=== PATIENT | female | born 1950 | race Caucasian/White ===

== ENCOUNTER → 2016-06-09 | Outpatient (CLI) | payer MEDICARE, OTHER | END | disposition home or self-care (01) | LOC: GMAM 14:40 | PROVIDERS: ATTEND Family Medicine | DX: R30.0 Dysuria (principal) ==

== ENCOUNTER → 2016-06-23 | Outpatient (CLI) | payer MEDICARE, OTHER | LOC: GMAM 17:48 | PROVIDERS: ATTEND Family Medicine | DX: M06.9 Rheumatoid arthritis, unspecified (principal); R30.0 Dysuria ==

== ENCOUNTER → 2016-09-08 | Outpatient (CLI) | payer MEDICARE, OTHER ==
--- NOTE | 2016-09-09 00:35 | US ---
Procedure: US LOWER EXTREMITY ARTERIES BILATERAL Exam Date: 09/08/2016 Ordering Provider: LEONARD KWON Clinical Indication: EDEMA Comparison: None Technique: Arterial duplex Doppler ultrasound was obtained over both lower extremities. This includes grayscale, pulsed Doppler, and color Doppler. Mentally Impaired Teacher images recorded. Findings: Right Lower Extremity: There are triphasic waveforms in the arteries of the thigh to the level of the popliteal. There are biphasic waveforms distally. No significant stenosis. Left Lower Extremity: There are triphasic waveforms in the arteries of the thigh to the level of the peroneal artery. There are biphasic waveforms in the posterior tibial and dorsalis pedis arteries. No significant stenosis. Impression: 1. No significant stenosis in the arteries of either lower extremity. Electronically signed by: Neeraj Morse MD 09/09/2016 12:34 AM CDT
== END | disposition home or self-care (01) ==
LOC: US 09:01
PROVIDERS: ATTEND Family Medicine
DX: R60.0 Localized edema (principal)

== ENCOUNTER → 2016-09-21 | Outpatient (CLI) | payer MEDICARE, OTHER | END | disposition home or self-care (01) | LOC: GMAM 14:24 | PROVIDERS: ATTEND Family Medicine | DX: N39.0 Urinary tract infection, site not specified (principal) ==

== ENCOUNTER → 2016-10-12 | Outpatient (CLI) | payer MEDICARE, OTHER | END | disposition home or self-care (01) | LOC: GMAM 15:13 | PROVIDERS: ATTEND Family Medicine | DX: N39.0 Urinary tract infection, site not specified (principal) ==

== ENCOUNTER → 2016-12-24 | Outpatient (CLI) | payer MEDICARE, OTHER | END | disposition home or self-care (01) | LOC: GMAM 10:29 | PROVIDERS: ATTEND Family Medicine | DX: D64.9 Anemia, unspecified (principal); E03.8 Other specified hypothyroidism; E55.9 Vitamin D deficiency, unspecified ==

== ENCOUNTER → 2017-01-10 | Outpatient (CLI) | payer MEDICARE, OTHER | LOC: GMA 20:46 | PROVIDERS: ATTEND Nurse Practitioner Acute Care | DX: D49.89 Neoplasm of unspecified behavior of other specified sites (principal) ==

== ENCOUNTER → 2017-02-17 | Outpatient (CLI) | payer MEDICARE, OTHER | END | disposition home or self-care (01) | LOC: GMA 16:44 | PROVIDERS: ATTEND Nurse Practitioner Family | DX: N39.0 Urinary tract infection, site not specified (principal) ==

== ENCOUNTER → 2017-03-11 | Outpatient (CLI) | payer MEDICARE, OTHER | END | disposition home or self-care (01) | LOC: BFHH 10:19 | PROVIDERS: ATTEND Family Medicine | DX: N39.0 Urinary tract infection, site not specified (principal) ==

== ENCOUNTER → 2017-03-31 | Outpatient (CLI) | payer MEDICARE, OTHER | END | disposition home or self-care (01) | LOC: GMAM 14:31 | PROVIDERS: ATTEND Family Medicine | DX: E03.8 Other specified hypothyroidism (principal) ==

== ENCOUNTER → 2017-04-11 | Outpatient (CLI) | payer MEDICARE, OTHER | END | disposition home or self-care (01) | LOC: MAMMO 11:33 | PROVIDERS: ATTEND Family Medicine | DX: Z12.31 Encounter for screening mammogram for malignant neoplasm of breast (principal); E87.6 Hypokalemia | CPT/HCPCS: 77063; 83735; G0202 ==

== ENCOUNTER → 2017-04-19 | Outpatient (CLI) | payer MEDICARE, OTHER ==
--- NOTE | 2017-04-21 15:25 | US ---
EXAM DESCRIPTION: Breast,Left: Ultrasound CLINICAL HISTORY: 66 yearsFemaleABNORMAL MAMMO COMPARISON: Digital 3-D tomosynthesis left breast on this visit. Bilateral 3-D screening mammogram 04/11/2017. TECHNIQUE: Transcutaneous scanning of the left breast utilizing two-dimensional and Doppler modes. Scanning performed by the fibre cement moulder and Dr. Blanton. FINDINGS: Ultrasound scanning 1200 clock position 2 cm from the nipple. Mostly diffuse fibroglandular tissues are noted. Minimal fatty tissues which are heterogeneous. No discrete solid mass or cyst. No skin changes or parenchymal edema. No large calcifications. IMPRESSION: 1. Bi-Rads Category 2: Benign. 2. Please refer to 3-D tomosynthesis left breast diagnostic mammographic study and report on this visit. The FINDINGS and the follow-up plan were reviewed in person with the patient after the examination. Written communication explaining the IMPRESSION and follow-up will be mailed to the patient and referring care provider. Electronically signed by: Elton Blanton MD 04/21/2017 3:24 PM [facility]
--- NOTE | 2017-04-21 15:26 | MAM ---
EXAM DESCRIPTION: 3D Diagnostic, Left: Digital Mammography CLINICAL HISTORY: 66 yearsFemaleABNORMAL MAMMO . Focal asymmetry left retroareolar breast. COMPARISON: 3-D tomosynthesis bilateral screening mammogram 04/11/2017. Targeted left breast ultrasound following this examination.. No prior reports available. Reports from prior examinations also reviewed. Report from prior examination also reviewed. TECHNIQUE: Left breast LM projection full-field images, 3-D tomosynthesis digital mammographic technique. Also bilateral synthesized LM full-field images. CAD not utilized. FINDINGS: The breast parenchymal density pattern is: Scattered areas of fibroglandular density. No skin thickening or nipple retraction focal asymmetry not well seen on the LM full-field 3-D tomography and symphysis images. ULTRASOUND: Ultrasound scanning 1200 clock position 2 cm from the nipple. Mostly diffuse fibroglandular tissues are noted. Minimal fatty tissues which are heterogeneous. No discrete solid mass or cyst. No skin changes or parenchymal edema. No large calcifications. IMPRESSION: BI-RADS CATEGORY: 2 - BENIGN FINDINGS. FOLLOW UP: Return to routine digital bilateral screening, one year interval from April 2017. The FINDINGS and the follow-up plan were reviewed in person with the patient after the examination. Written communication explaining the IMPRESSION and follow-up will be mailed to the patient and referring care provider. According to the [employer], yearly mammograms are recommended starting at age 40 and continuing as long as a woman is in good health. Any breast change noted on a breast self-exam should be reported promptly to the patient's healthcare provider. Breast MRI is recommended for women with an approximately 20-25% or greater lifetime risk of breast cancer, including women with a strong family history of breast or ovarian cancer and women who have been treated for Hodgkin's disease. A negative mammographic report should not delay tissue diagnosis in patients with significant clinical history or physical findings. Extremely dense breast tissue limits the sensitivity of digital mammography. Electronically signed by: Elton Blanton MD 04/21/2017 3:25 PM [facility]
== END | disposition home or self-care (01) ==
LOC: MAMMO 11:03
PROVIDERS: ATTEND Family Medicine
DX: R92.8 Other abnormal and inconclusive findings on diagnostic imaging of breast (principal)
CPT/HCPCS: 76641; G0206; G0279

== ENCOUNTER → 2017-06-24 | Outpatient (CLI) | payer MEDICARE, OTHER | LOC: BFHH 16:44 | PROVIDERS: ATTEND Family Medicine | DX: R30.0 Dysuria (principal); R35.0 Frequency of micturition ==

== ENCOUNTER → 2017-07-12 | Outpatient (CLI) | payer MEDICARE, OTHER | LOC: GMAM 11:39 | PROVIDERS: ATTEND Family Medicine | DX: E03.8 Other specified hypothyroidism (principal) ==

== ENCOUNTER → 2017-08-17 | Outpatient (CLI) | payer MEDICARE, OTHER ==
--- NOTE | 2017-08-17 14:46 | MRI ---
EXAM DESCRIPTION: Lumbar Spine w/o Contrast CLINICAL HISTORY: LEG PAIN, RHEUMATOID ARTHRITIS COMPARISON: None Available. TECHNIQUE: MRI of the lumbar spine is performed according to our usual protocol with axial and sagittal multi sequence imaging. FINDINGS: Sagittal T2 images reveal decreased signal intensity consistent with desiccation of the intervertebral discs at all lumbar levels. Posterior annular bulges are not a prominent finding. No prevertebral mass or aneurysm. Lower cord and conus appear normal. Tip of the conus is behind lower L1. Hemangiomas in vertebral bodies L1 and L2. Sagittal T1 images reveal benign marrow signal characteristics. Normal T1 signal intensity and appearance of the lower cord and conus. Sagittal STIR images are negative for marrow edema within the vertebral bodies or posterior elements. No paraspinous fluid collection or cystic lesion. Axial T1 and T2-weighted images were obtained to evaluate the disc levels. L1-2: No posterior annular bulge or herniation. No spinal stenosis or neural foraminal narrowing. Mild facet hypertrophic changes. Normal tip of the conus and upper cauda equina. L2-3: No posterior annular bulge or focal disc herniation. No spinal stenosis or neural foraminal narrowing. Facets appear normal with mild ligamentum flavum thickening. L3-4: Minimal posterior annular bulge without focal disc herniation. No spinal stenosis or neural foraminal narrowing. Hypertrophied facets and thickened ligamentum flavum are noted, left more than right. No significant subarticular recess narrowing. L4-5: Mild posterior annular bulge without focal disc herniation. No spinal stenosis or neural foraminal narrowing. There is moderate facet and ligamentum flavum hypertrophy without significant subarticular recess narrowing. L5-S1: Minimal posterior annular bulge with no focal disc herniation. No spinal stenosis or neural foraminal narrowing. Moderate facet and ligamentum flavum hypertrophy. Upper sacrum appears intact. Fatty atrophy of the paraspinous muscles is noted. No aortic aneurysm or retroperitoneal adenopathy. IMPRESSION: Negative for spinal stenosis or acute disc herniation. Electronically signed by: Hairsh Thomas MD 08/17/2017 2:44 PM CDT
== END ==
LOC: MRI 09:09
PROVIDERS: ATTEND Family Medicine
DX: M06.9 Rheumatoid arthritis, unspecified (principal); M79.652 Pain in left thigh; M79.651 Pain in right thigh

== ENCOUNTER → 2017-08-25 | Outpatient (CLI) | payer MEDICARE, OTHER | LOC: GMAM 10:38 | PROVIDERS: ATTEND Family Medicine | DX: E04.8 Other specified nontoxic goiter (principal); M06.9 Rheumatoid arthritis, unspecified; I10 Essential (primary) hypertension; E11.9 Type 2 diabetes mellitus without complications ==

== ENCOUNTER → 2017-10-07 | Outpatient (CLI) | payer MEDICARE, OTHER | LOC: GMAM 10:34 | PROVIDERS: ATTEND Family Medicine | DX: N39.0 Urinary tract infection, site not specified (principal); M06.9 Rheumatoid arthritis, unspecified ==

== ENCOUNTER → 2017-11-07 | Outpatient (CLI) | payer MEDICARE, OTHER | LOC: GMAM 15:14 | PROVIDERS: ATTEND Family Medicine | DX: M06.9 Rheumatoid arthritis, unspecified (principal); N39.0 Urinary tract infection, site not specified ==

== ENCOUNTER 2018-01-27 13:49 | Inpatient (IN) | payer MEDICARE, OTHER ==
[2018-01-27] MEDS ORDERED: SODIUM CHLORIDE 0.9% (FLUSH) 10 ML SYG IV PRN (15:02)
[2018-01-27] MEDS ORDERED: ACETAMINOPHEN 325 MG TAB PO PRN (15:02)
[2018-01-27 15:28] VITALS: O2SAT 95
[2018-01-27] MEDS ORDERED: IV SET AND CAP CHANGE INJ INJ SCH (15:30)
[2018-01-27] MEDS ORDERED: GLUCAGON INJ 1 MG VIAL SUBCU PRN (15:53)
[2018-01-27] MEDS ORDERED: DEXTROSE 50% 25 GM/50 ML SYG IV PRN (15:53)
[2018-01-27] MEDS ORDERED: PIPERACILLIN/TAZOBACTAM 3.375 GM in SODIUM CHLORIDE 0.9% 100ML 100 ML IVPB ONE (16:00)
[2018-01-27] MEDS ORDERED: INSULIN LISPRO 100 UNITS/ML PEN SUBCU SCH (16:30)
[2018-01-27 17:00] VITALS: TEMP 98.4
[2018-01-27] MEDS ORDERED: PIPERACILLIN/TAZOBACTAM 3.375 GM VIAL IVPB ONE (17:07)
[2018-01-27] MEDS ORDERED: SODIUM CHLORIDE 0.9% 100ML 100 ML IVPB ONE (17:08)
[2018-01-27] MEDS ORDERED: KCL 20MEQ/0.45% NS 1,000 ML IVS PRN (17:57)
[2018-01-27] MEDS ORDERED: predniSONE 5 MG TAB PO SCH (18:00)
[2018-01-27] MEDS ORDERED: metFORMIN HCL 500 MG TAB PO SCH (18:42)
[2018-01-27] MEDS ORDERED: NON-FORMULARY MEDICATION 1 EA MIS (Furosemide [Lasix] 20 MG) PO PRN (18:42)
[2018-01-27] MEDS ORDERED: HYDROcodone 10MG/APAP 325MG 1 EA TAB PO SCH (18:42)
[2018-01-27] MEDS ORDERED: NON-FORMULARY MEDICATION 1 EA MIS (Magnesium [Magnesium] 400 MG) PO SCH (18:42)
[2018-01-27] MEDS ORDERED: POTASSIUM CHLORIDE 16 MEQ PO SCH (18:42)
[2018-01-27] MEDS ORDERED: NON-FORMULARY MEDICATION 1 EA MIS (Losartan Potassium & Hydrochlo [Losartan Potassium/Hydr PO SCH (18:42)
[2018-01-27] MEDS ORDERED: PIPERACILLIN/TAZOBACTAM 3.375 GM in SODIUM CHLORIDE 0.9% 100ML 100 ML IVPB SCH (20:00)
[2018-01-27] MEDS ORDERED: NON-FORMULARY MEDICATION 1 EA MIS (Cholecalciferol [Vitamin D3] 1,000 UNIT) PO SCH (22:30)
[2018-01-27] MEDS ORDERED: MULTIPLE MINERALS PO SCH (22:30)
[2018-01-27] MEDS ORDERED: VITAMINS PO SCH (22:30)
[2018-01-28] MEDS ORDERED: FENOFIBRATE 48 MG PO SCH (06:00)
[2018-01-28] MEDS ORDERED: NON-FORMULARY MEDICATION 1 EA MIS PO SCH (06:00)
[2018-01-28] MEDS ORDERED: LEUCOVORIN CALCIUM 5 MG PO SCH (12:00)
[2018-01-28] MEDS ORDERED: NON-FORMULARY MEDICATION 1 EA MIS (Leflunomide [Leflunomide] 10 MG) PO SCH (12:00)
--- NOTE | 2018-01-28 12:14 | SSS ---
SUPERVISING PHYSICIAN: Ivan Valentin M.D. CHIEF COMPLAINT: Urinary tract infection. HISTORY OF PRESENT ILLNESS: Ms. Beth is a 67 year-old female patient that is taken care by Dr. Acevedo. She has a history of multiple urinary tract infections with fairly resistant organisms in the past. In the last month or so she has had a couple of urinary tract infections where cultures come back Klebsiella pneumoniae showing again very resistant pattern being sensitive to only Amoxicillin, Cipro, Levaquin, Zosyn and Nitrofurantoin. The patient has been on Augmentin, however she is allergic to Cipro and Levofloxacin. She in the last week has been started once again on Augmentin but yet has any improvement and continues to show growth on cultures. Dr. Acevedo requested the patient be admitted to the hospital for initiation of antibiotic therapy with Zosyn given the fact that she has failed to respond to any treatment with any oral antibiotics. The patient was directly admitted in stable condition for further evaluation and treatment. PAST MEDICAL HISTORY: 1. Chronic urinary tract infection with multidrug resistant organisms. 2. Hyperlipidemia. 3. Hypertension. 4. Osteoarthritis. 5. Bilateral cataracts. 6. Rheumatoid arthritis. PAST SURGICAL HISTORY: 1. Tonsillectomy. 2. Bilateral tubal ligation. HOME MEDICATIONS: Awaiting updated list and verifications of medications at time of admission. ALLERGIES: CIPRO, MACRODANTIN, IVP DYE AND TRICOR. FAMILY HISTORY: Father at unknown age due to leukemia. Mother is currently living and healthy. She has 1 brother who is healthy. She has a sister as well as 2 sons who are healthy. She has 2 daughters who are both , one from prescription problems, the other one from homicide. SOCIAL HISTORY: The patient lives in [place]. She is . She is a current smoker, approximately a pack a day. She denies any alcohol or illicit drug use. REVIEW OF SYSTEMS: CONSTITUTIONAL: Denies any fevers, chills, body aches, weight gains, weight changes. HEENT: Denies any headaches, ear aches, nasal congestion, sore throat, coughing. RESPIRATORY: Denies any coughing, wheezing or shortness of breath. CARDIOVASCULAR: Denies any chest pains, dyspnea or syncopal episodes. GASTROINTESTINAL: Denies any nausea, vomiting, diarrhea other than diarrhea associated with Metformin. She has no abdominal pains. GENITOURINARY: Denies any significant dysuria, hematuria, polyuria despite chronic urinary tract infections. NEUROLOGIC: She denies any headaches, syncopal episodes, ataxia, seizures or other neurosensory deficits. PHYSICAL EXAMINATION: VITAL SIGNS: Temperature 98.4, pulse 78, respirations 18, satting 90% on room air. Blood pressure was not obtained at time of admission. Weight 88.5 kg. GENERAL: The patient is quite anxious and is very demanding. She is upset that she has not yet received her medication since she has been in the hospital that she has had at specific times, but she appears to be in no acute distress. HEENT: Tympanic membranes are clear bilaterally. Oropharynx was pink and moist without any lesions. NECK: Supple, non-tender with full range of motion. No jugular venous distention. CHEST: Clear to auscultation without any rhonchi, wheezing or rales. CARDIOVASCULAR: Regular rate and rhythm without appreciable murmurs, gallops, or rubs. ABDOMEN: Soft, non-tender. Positive bowel sounds. GENITOURINARY: Deferred. EXTREMITIES: No clubbing, cyanosis or edema. NEUROLOGIC: She is alert and oriented times three. Facial features were symmetrical. Extraocular movements are within normal limits. There was no notable nystagmus. Cranial nerves II-XII are grossly intact. LABORATORY: CBC showed a white count of 6,900, hemoglobin 13.3, hematocrit 39.6 , platelet count 208,000. Differential showed to be without a left shift. Chemistries showed potassium 3.5, otherwise electrolytes were normal. BUN 19, creatinine 0.61, glucose 79. Blood sugars 97. Liver functions were all within normal limits. Urinalysis again showed positive nitrites. Microscopic revealed 3+ bacteria but no white cells. No WBCs and 1 to 3 epithelials. MICROBIOLOGY: Blood cultures were obtained. She had a culture pending from the previous day in the clinic which showed greater than 100,000 gram negative bacilli. RADIOLOGY: No radiographic studies were obtained. ASSESSMENT: 1. Chronic urinary tract infection failing to respond to outpatient management requiring initiation of IV antibiotics due to multidrug resistant organisms. 2. History of hypertension. 3. Osteoarthritis. 4. Rheumatoid arthritis. HOSPITAL COURSE: The patient was admitted directly from Dr. Acevedo's office late in the afternoon for initiation of Zosyn. She was admitted in stable condition. Vital signs were obtained. IVs were started. She received an initial dose of Zosyn. She demanded that her medications be administered at a specific time. I explained to her that they would have to be inventoried as they were her home medications and once they could be assessed and reevaluated and updated in the computer so that they could be restarted, they would be administered. She voiced that this would be okay but shortly after told the nurses that she was not going to stand for not getting her medications and was going to leave because her medications were over 30 minutes late. Once again it was explained to the patient the situation that the medications were not ready to be administered because they were not in hand and we could not administer medications that were not verified. The patient understood this but was not willing to accept this and was told that if she wished to be discharge she could do so against medical advice. After further counseling of the patient , the patient opted to leave against medical advice. Her IVs were removed. Her home medications actually were administered before she left. Her medications she had brought to us were re-inventoried and verified, and returned to the patient. She was told should she have any concerning symptoms to certainly return to the [facility] for further evaluation and to followup with Dr. Acevedo next week. The patient was stable at time of discharge. PLAN: The patient is leaving against medical advice as noted above. She was instructed to return to the hospital should she have any concerning symptoms. She was told to resume her home medications that she had prior to administration to the hospital and to followup with Dr. Acevedo in the following week. She was also notified that Dr. Acevedo would be notified of the current situation of the patient leaving against medical advice. Diet at discharge was diabetic diet as tolerated. Activities were to increase as tolerated. No new medications were prescribed at discharge and she was in stable condition at discharge, and was discharged to the care of her . #[id number] [facility]
[2018-01-28] MEDS ORDERED: METHOTREXATE SODIUM PO SCH (18:42)
== END 2018-01-27 19:30 | disposition left against medical advice (07) | DRG 690 ==
LOC: MS 13:49
PROVIDERS: ADMIT Nurse Practitioner Family; ATTEND Nurse Practitioner Family
DX: N39.0 Urinary tract infection, site not specified (principal); Z87.440 Personal history of urinary (tract) infections; E78.5 Hyperlipidemia, unspecified; I10 Essential (primary) hypertension; M19.90 Unspecified osteoarthritis, unspecified site; H26.9 Unspecified cataract; M06.9 Rheumatoid arthritis, unspecified; F17.210 Nicotine dependence, cigarettes, uncomplicated; F41.9 Anxiety disorder, unspecified

== ENCOUNTER → 2018-05-10 | Outpatient (CLI) | payer MEDICARE, MEDICAID ==
--- NOTE | 2018-05-10 14:45 | US ---
EXAM DESCRIPTION: Renal CLINICAL HISTORY: 67 years Female, CHRONIC CYSTITIS COMPARISON: Previous CT abdomen and pelvis without contrast May 07, 2015 TECHNIQUE: Retroperitoneal sonogram was performed to evaluate the kidneys and bladder. FINDINGS: Right kidney Right renal length is 10.7 cm. Renal cortical thickness and echogenicity are normal. No right renal mass, cyst or shadowing stone. No hydronephrosis. Liver is hyperechoic consistent with diffuse hepatic steatosis. Left kidney Left renal length is 10.9 cm. Renal cortical thickness and echogenicity are normal. No left renal mass, cyst or shadowing stone. No hydronephrosis. Urinary bladder Bladder wall thickness is normal for degree of distention. Bladder is only partly filled. IMPRESSION: Normal sonographic appearance of the kidneys. Unremarkable appearance of the urinary bladder. Electronically signed by: Harish Thomas MD 05/10/2018 2:43 PM [facility]
== END ==
LOC: LAB.NP 13:53
PROVIDERS: ATTEND Urology
DX: N30.20 Other chronic cystitis without hematuria (principal); R31.0 Gross hematuria

== ENCOUNTER → 2018-07-18 | Outpatient (CLI) | payer MEDICARE, MEDICAID | LOC: GMAM 15:30 | PROVIDERS: ATTEND Family Medicine | DX: E03.8 Other specified hypothyroidism (principal) ==

== ENCOUNTER → 2018-08-10 | Outpatient (CLI) | payer MEDICARE, MEDICAID ==
--- NOTE | 2018-08-10 17:21 | US ---
EXAM DESCRIPTION: Venous,Lower Extremity LT (accession [id number]), Venous,Lower Extremity RT (accession [id number]): Ultrasound. CLINICAL HISTORY: PVD. Bilateral lower extremity pain and swelling. COMPARISON: None Available. TECHNIQUE: Two -dimensional and doppler sonographic evaluation of the deep venous system of the bilateral lower extremities. FINDINGS: Doppler evaluation shows normal color flow and normal phasicity and augmentation of the bilateral common femoral veins, femoral veins, popliteal veins, greater saphenous vein, and peroneal veins, and bilateral Posterior tibial veins. These veins showed normal occlusion with transducer pressure. Two-dimensional survey showed no echogenic clot within these veins. IMPRESSION: Duplex ultrasound evaluation of the bilateral lower extremity deep venous systems showing no evidence of thrombosis. Electronically signed by: Elton Blanton MD 08/10/2018 5:18 PM CDT
--- NOTE | 2018-08-10 17:21 | US ---
EXAM DESCRIPTION: Venous,Lower Extremity LT (accession [id number]), Venous,Lower Extremity RT (accession [id number]): Ultrasound. CLINICAL HISTORY: PVD. Bilateral lower extremity pain and swelling. COMPARISON: None Available. TECHNIQUE: Two -dimensional and doppler sonographic evaluation of the deep venous system of the bilateral lower extremities. FINDINGS: Doppler evaluation shows normal color flow and normal phasicity and augmentation of the bilateral common femoral veins, femoral veins, popliteal veins, greater saphenous vein, and peroneal veins, and bilateral Posterior tibial veins. These veins showed normal occlusion with transducer pressure. Two-dimensional survey showed no echogenic clot within these veins. IMPRESSION: Duplex ultrasound evaluation of the bilateral lower extremity deep venous systems showing no evidence of thrombosis. Electronically signed by: Elton Blanton MD 08/10/2018 5:18 PM CDT
--- NOTE | 2018-08-10 17:26 | US ---
EXAM DESCRIPTION: Extremity,Lower Werner Arteries: Ultrasound. CLINICAL HISTORY: PVD COMPARISON: None. TECHNIQUE: Doppler evaluation of the bilateral lower extremity arterial flow waveforms and velocities. FINDINGS: Arterial waveforms in the right lower extremity are biphasic or triphasic throughout the right lower extremity. Minimal velocity and smaller waveforms in the right DPA.. Arterial waveforms in the left lower extremity are triphasic or biphasic from the left common femoral artery through the left SENIOR LINUX SYSTEMS ENGINEER. Decreased velocity and monophasic waveform in the left peroneal artery. Significantly decreased velocity and monophasic waveform left DPA.. Comments: tab IMPRESSION: The study indicates mild degree of atherosclerotic occlusive disease in the right anterior tibial artery. Mild to moderate atherosclerotic occlusive disease in the left peroneal artery and the left anterior tibial artery. Electronically signed by: Elton Blanton MD 08/10/2018 5:23 PM CDT
--- NOTE | 2018-08-15 12:45 | MAM ---
EXAM DESCRIPTION: 3D Screening BILATERAL : Digital Mammography. CLINICAL HISTORY: 67 years Female ANNUAL SCREENING . No complaints. No personal or family history of breast cancer. Childbirth. Postmenopausal. No HRT. Lifetime risk of developing breast cancer (Tyrer-Cuzick model)(%): 5%. COMPARISON: Bilateral screening digital breast tomosynthesis 04/11/2017. Diagnostic left breast tomosynthesis 04/19/2017. TECHNIQUE: Bilateral CC and MLO projection full-field images, digital tomosynthesis mammographic technique. Bilateral digital 2-D full-field MLO images. CAD not available for tomosynthesis or 2-D images. FINDINGS: The breast parenchymal density pattern is: Scattered areas of fibroglandular density. No skin thickening or nipple retraction. Bilateral scattered solitary calcifications. Left axillary lymph nodes.. No new focal, stellate mass or density, focal asymmetry , and no suspicious microcalcifications or laterally. Stable mammograms compared to prior study. IMPRESSION: Benign exam. BIRAD CATEGORY: 2 BENIGN FINDINGS. RECOMMENDATIONS: FOLLOW UP: Routine digital bilateral mammographic screening, one year interval from July 2018. Written communication explaining the IMPRESSION and follow-up, will be mailed to the patient and referring health care provider. According to the [employer], yearly mammograms are recommended starting at age 40 and continuing as long as a woman is in good health. Any breast change noted on a breast self-exam should be reported promptly to the patient's healthcare provider. Breast MRI is recommended for women with an approximately 20-25% or greater lifetime risk of breast cancer, including women with a strong family history of breast or ovarian cancer and women who have been treated for Hodgkin's disease. A negative mammographic report should not delay tissue diagnosis in patients with significant clinical history or physical findings. Extremely dense breast tissue limits the sensitivity of digital mammography. Electronically signed by: Elton Blanton MD 08/15/2018 12:42 PM CDT
== END ==
LOC: US 10:00
PROVIDERS: ATTEND Family Medicine
DX: Z12.31 Encounter for screening mammogram for malignant neoplasm of breast (principal); E11.9 Type 2 diabetes mellitus without complications; I70.293 Other atherosclerosis of native arteries of extremities, bilateral legs; E11.59 Type 2 diabetes mellitus with other circulatory complications; G60.3 Idiopathic progressive neuropathy

== ENCOUNTER → 2018-09-05 | Outpatient (CLI) | payer MEDICARE, MEDICAID, OTHER ==
--- NOTE | 2018-09-06 08:56 | CT ---
Procedure: CT LUNG SCREENING Exam Date: 463 05/30/2018. Ordering Provider: Ramsey Munoz Clinical Indication: PERSONAL HISTORY OF TOBACCO USE 50-75 pack years. Still smoking. This patient meets eligibility criteria for low-dose CT lung cancer screening. Comparison: None. Technique: Using a multislice scanner, sequential helical axial imaging was obtained in the thorax, 2.5 mm thickness, 2.5 mm separation, from the level of the thoracic inlet through the lung bases without IV contrast. A low dose protocol was utilized for BMI less than 30: BMI: 27.8. CTDI: 1.76 mGy. 120. kVp. 45 mA. DLP 67.8 mGy centimeters. 2D sagittal and coronal reconstructed images, 6.0 mm thickness, were obtained. This exam was performed according to our departmental dose optimization program which includes use of automated exposure control, adjustment of the mA and/or kV according to patient size and/or use of iterative reconstruction technique. Nodule measurements under 10 mm are given as mean value of 3 axes diameters. FINDINGS: Lungs and large airways: Scattered centrilobular type blebs in the lung parenchyma more prevalent in the upper lung guerrero. Pleural parenchymal scarring in the anterior lingula. 4 mm subpleural solid nodule versus pleural focal thickening abutting the lateral left lower lobe on axial image 2/93. 3 mm calcified nodule abutting the pleura posterior left lower lobe on axial image 2/81. Focal thickening of the left major fissure on axial image 2/66. No other nodules are seen in the lungs. No masses and no focal infiltrates. Pleura and space: Bilateral apical pleural thickening more on the right. Scattered bilateral focal thickening Mediastinum and lynette: evaluation limited by low dose technique and lack of IV contrast. No enlarged nodes. Heart and great vessels: Calcification of proximal brachiocephalic vessels, aortic arch and descending thoracic aorta, and coronary arteries. Chest wall, lower neck, axillae: Evaluation also limited by same factors as described above. Normal size axillary lymph nodes. Small thyroid gland. Upper abdomen: Included peritoneal cavity is negative. Normal size and density of the spleen and adrenal glands. Abdominal aortic calcifications. Osseous structures: Evaluation limited by low dose MIP technique. Upper thoracic dextroscoliosis. Minimal arthrosis right glenohumeral joint. No lytic or blastic lesions. IMPRESSION: Mild centrilobular type emphysema involving the upper lobes. Solid subpleural 4 mm nodule left lower lobe versus focal pleural thickening. Calcified granuloma left lower lobe.. [facility] Best Practice recommendations: Please see below for Lung RADS category and FOLLOW-UP.* *Lung RADS category CATEGORY 3 - Probably benign (1-2% malignancy probability), short term follow-up suggested. NODULES: Solid nodule(s) 6mm to less than 8mm at baseline, or new 4mm to under 6mm solid nodule. Part solid nodule total diameter 6mm to less than 8mm with solid component less than 6mm, or new less than 6mm total diameter nodule] [ground glass nodule(s) 20mm or greater. FOLLOW-UP: Please return for a Low Dose Chest CT in 6 months for re-evaluation. Electronically signed by: Elton Blanton MD 09/06/2018 8:54 AM CDT
== END ==
LOC: CT 10:00
PROVIDERS: ATTEND Family Medicine
DX: Z87.891 Personal history of nicotine dependence (principal); J43.9 Emphysema, unspecified

== ENCOUNTER → 2018-11-10 | Outpatient (CLI) | payer MEDICARE, MEDICAID | LOC: GMAM 10:32 | PROVIDERS: ATTEND Family Medicine | DX: E03.8 Other specified hypothyroidism (principal); E11.9 Type 2 diabetes mellitus without complications; I10 Essential (primary) hypertension ==

== ENCOUNTER → 2019-03-05 | Outpatient (CLI) | payer MEDICARE, MEDICAID, OTHER ==
--- NOTE | 2019-03-05 14:41 | CT ---
Procedure: CT LUNG SCREENING Exam Date: 03/05/2019. Ordering Provider: Ramsey Munoz Clinical Indication: PERSONAL HISTORY OF TOBACCO USE . Current cigarette smoker. 30 pack years. This patient meets eligibility criteria for low-dose CT lung cancer screening. Lung rads category 3 on prior screening study. Comparison: Low-dose CT lung cancer screening chest 05 Sep 2018. Technique: Using a multislice scanner, sequential helical axial imaging was obtained in the thorax, 2.5 mm thickness, 2.5 mm separation, from the level of the thoracic inlet through the lung bases without IV contrast. A low dose protocol was utilized for BMI less than 30: BMI: 26.3. CTDI: 1.76 mGy. 120. kVp. 45 mA. DLP 67.4 mGy-centimeters. 2D sagittal and coronal reconstructed images, 6.0 mm thickness, were obtained. This exam was performed according to our departmental dose optimization program which includes use of automated exposure control, adjustment of the mA and/or kV according to patient size and/or use of iterative reconstruction technique. Nodule measurements under 10 mm are given as mean value of 3 axes diameters. FINDINGS: Lungs and large airways: Prominent blebs in a centrilobular distribution bilaterally symmetric in the upper lung guerrero more prominent than mid- and the lower lung guerrero. Subpleural nodule versus pleural thickening on image 2/95, lateral left lower lobe 3.5 mm slightly smaller than the prior study. Stable calcified nodule subpleural left lower lobe abutting the medial pleura at the paravertebral on image 2/85 is stable. Decreasing size merry fissural nodule, left major fissure on image 2/70. 3 mm subpleural density lateral base of the right upper lobe is stable on image 2/83.. Pleura and space: Bilateral focal pleural thickening. Bilateral apical pleural thickening more on the right. Stable pleural parenchymal thickening. No complications... Mediastinum and lynette: evaluation limited by low dose technique and lack of IV contrast. Stable small nodes but no dominant soft tissue mass Heart and great vessels: Atherosclerotic calcification proximal LAD with similar calcifications in the brachiocephalic vessels aortic arch and descending thoracic aorta. Chest wall, lower neck, axillae: Evaluation also limited by same factors as described above. Stable axillary lymph nodes bilaterally. Small thyroid gland. Upper abdomen: Evaluation limited by low-dose technique. No free air or free fluid in the included peritoneal space. Included organs are unremarkable. Osseous structures: Evaluation limited by low dose MIP technique. Minimal thoracic spondylosis and scoliosis. Sternomanubrial arthrosis. No lytic or blastic lesions. IMPRESSION: Stable emphysematous changes in the upper lung guerrero more than lower lung guerrero. Stable subpleural nodule versus pleural focal thickening left lower lobe. Small scar or nodule right upper lobe stable since the prior study.. [facility] Best Practice Recommendations: please see below for Lung RADS category and FOLLOW-UP.* *Lung RADS category CATEGORY 2- Nodules with a very low likelihood (less than 1%) of becoming a clinically active cancer due to size or lack of growth. Nodules: Perifissural nodule(s) < 10 mm. (526mm3). Solid or part solid nodule(s) less than 6mm (113.1 mm3), new solid nodule less than 4mm (33.5 mm3). Ground glass nodule(s) less than 30mm (46766.2 mm3) or unchanged or slow growing ground glass nodule 30mm or greater. Cat 3 or 4 nodule unchanged for 3 or more months. FOLLOW-UP: Continue annual screening with a Low Dose Chest CT in 12 months for re-evaluation. Electronically signed by: Elton Blanton MD 03/05/2019 2:39 PM CLINIC OFFICE MANAGER
== END ==
LOC: CT 10:00
PROVIDERS: ATTEND Family Medicine
DX: Z87.891 Personal history of nicotine dependence (principal); R91.1 Solitary pulmonary nodule; J43.9 Emphysema, unspecified

== ENCOUNTER → 2019-04-09 | Outpatient (CLI) | payer MEDICARE, MEDICAID, OTHER | LOC: GMAM 14:29 | PROVIDERS: ATTEND Family Medicine | DX: M05.79 Rheumatoid arthritis with rheumatoid factor of multiple sites without organ or systems involvement (principal); E11.9 Type 2 diabetes mellitus without complications ==

== ENCOUNTER → 2019-07-27 | Outpatient (CLI) | payer MEDICARE, MEDICAID | LOC: GMAM 10:16 | PROVIDERS: ATTEND Family Medicine | DX: R53.83 Other fatigue (principal); M06.9 Rheumatoid arthritis, unspecified; E55.9 Vitamin D deficiency, unspecified ==

== ENCOUNTER → 2019-12-17 | Outpatient (CLI) | payer MEDICARE, MEDICAID | LOC: GMAM 15:08 | PROVIDERS: ATTEND Family Medicine | DX: E03.8 Other specified hypothyroidism (principal); I10 Essential (primary) hypertension; M06.9 Rheumatoid arthritis, unspecified; E11.21 Type 2 diabetes mellitus with diabetic nephropathy; E78.2 Mixed hyperlipidemia; E55.9 Vitamin D deficiency, unspecified ==

== ENCOUNTER → 2020-02-12 | Outpatient (CLI) | payer MEDICARE, MEDICAID | LOC: GMAM 17:59 | PROVIDERS: ATTEND Family Medicine | DX: E53.8 Deficiency of other specified B group vitamins (principal) ==

== ENCOUNTER → 2020-04-14 | Outpatient (CLI) | payer MEDICARE, MEDICAID, OTHER ==
--- NOTE | 2020-04-15 12:30 | CT ---
Procedure: CT LUNG SCREENING Exam Date: April 14, 2020. Ordering Provider: Ramsey Munoz Clinical Indication: PERSONAL HX OF TOBACCO . Current cigarette smoker. 50-55 pack-year history. This patient meets eligibility criteria for low-dose CT lung cancer screening. Comparison: Low-dose CT lung cancer screening examination March 2019. Technique: Using a multislice scanner, sequential helical axial imaging was obtained in the thorax, 2.5 mm thickness, 2.5 mm separation, from the level of the thoracic inlet through the lung bases without IV contrast. A low dose protocol was utilized for BMI less than 30: BMI: 29. CTDI: 1.76 mGy. 120. kVp. 45 mA. DLP 67 mGy-cm. 2D sagittal and coronal reconstructed images, 6.0 mm thickness, were obtained. This exam was performed according to our departmental dose optimization program which includes use of automated exposure control, adjustment of the mA and/or kV according to patient size and/or use of iterative reconstruction technique. Nodule measurements under 10 mm are given as mean value of 3 axes diameters. FINDINGS: Lungs and large airways: Bilateral parenchymal blebs in a centrilobular distribution and more prevalent in the upper lung guerrero stable. Small branching density with no nodular appearance on the current study in the subpleural lateral base of the right lower lobe on axial series 2, image 69, 6 mm longest dimension bilateral lower lobe pleural parenchymal scars. 4.4 mm focal pleural thickening, associated with broad pleural thickening, versus subpleural nodule medial superior segment right lower lobe, new since the prior study, image 2/65. Stable focal pleural thickening or subpleural nodule approximately 3 mm in diameter lateral left lower lobe on image 92. Stable medial subpleural calcified nodule left lower lobe on image 85. Pleura and space: Moderate broad and focal pleural thickening. Bilateral apical pleural thickening more on right than left. No acute process. Stable from the prior study. Mediastinum and lynette: evaluation limited by low dose technique and lack of IV contrast. Small lymph nodes. No dominant soft tissue mass. No interval change. Heart and great vessels: Coronary artery calcifications. Atherosclerotic calcifications in the brachial cephalic vessels and aorta. Minimal ectasia in the aortic arch. Stable since the prior study. Chest wall, lower neck, axillae: Evaluation also limited by same factors as described above. Lipoma in the anterior aspect of the anterior deltoid muscle. Upper abdomen: Evaluation limited by low-dose technique. No free air or free fluid in the included peritoneal space. Normal size and density of the adrenal glands and spleen. Osseous structures: Evaluation limited by low dose MIP technique. Thoracic kyphosis and dextroscoliosis. Narrowing of some of the foramina. Arthrosis glenohumeral joints and sternoclavicular joints. No lytic or blastic lesions. IMPRESSION: Emphysematous changes are centrilobular and predominantly in the upper lungs and stable. New 4.4 mm subpleural nodule versus focal pleural thickening medial right lower lobe. Otherwise stable appearance of the lungs.. [facility] Best Practice Recommendations: please see below for Lung RADS category and FOLLOW-UP.* *Lung RADS category CATEGORY 2- Nodules with a very low likelihood (less than 1%) of becoming a clinically active cancer due to size or lack of growth. Nodules: Perifissural nodule(s) < 10 mm. (526mm3). Solid or part solid nodule(s) less than 6mm (113.1 mm3), new solid nodule less than 4mm (33.5 mm3). Ground glass nodule(s) less than 30mm (86154.2 mm3) or unchanged or slow growing ground glass nodule 30mm or greater. Cat 3 or 4 nodule unchanged for 3 or more months. FOLLOW-UP: Continue annual screening with a Low Dose Chest CT in 12 months for re-evaluation. Electronically signed by: Elton Blanton MD 04/15/2020 12:28 PM DEVELOPMENT COACH
== END ==
LOC: CT 11:08
PROVIDERS: ATTEND Family Medicine
DX: Z12.2 Encounter for screening for malignant neoplasm of respiratory organs (principal); R91.8 Other nonspecific abnormal finding of lung field; J43.9 Emphysema, unspecified; M06.9 Rheumatoid arthritis, unspecified; I10 Essential (primary) hypertension; E03.8 Other specified hypothyroidism; E11.21 Type 2 diabetes mellitus with diabetic nephropathy; E78.2 Mixed hyperlipidemia; E55.9 Vitamin D deficiency, unspecified; Z87.891 Personal history of nicotine dependence
CPT/HCPCS: 82306; 84439; 84443; 86140; G0297